=== PATIENT | female | born 1975 | race African-American/Black ===

== ENCOUNTER 2019-03-24 03:23 | Emergency (ER) | payer SELFPAY ==
[~2019-03-24] VITALS: Ht 167.6 cm; Wt 56.7 kg
[2019-03-24 03:27] VITALS: BP 125/85
[2019-03-24] MEDS ORDERED: ONDANSETRON 4 MG TAB.RAPDIS SL ONE (04:00)
[2019-03-24] MEDS ORDERED: HYDROCODONE/APAP 5/325MG 1 EACH TABLET PO ONE (04:00)
[2019-03-24] MEDS ORDERED: ONDANSETRON 4 MG TAB.RAPDIS ONE (04:00)
[2019-03-24] MEDS ORDERED: HYDROCODONE/APAP 5/325MG 1 EACH TABLET ONE (04:00)
== END 2019-03-24 05:13 | disposition home or self-care (01) ==
LOC: ER 03:28
DX: M54.6 Pain in thoracic spine (principal); M79.642 Pain in left hand; M79.641 Pain in right hand; R42 Dizziness and giddiness; R51 Headache; J45.909 Unspecified asthma, uncomplicated; V49.59XA Passenger injured in collision with other motor vehicles in traffic accident, initial encounter; Y93.89 Activity, other specified; Y92.488 Other paved roadways as the place of occurrence of the external cause; Y99.8 Other external cause status
CPT/HCPCS: 73120 ×2; 99283; Q0162